=== PATIENT | male | born 1965 | race Hispanic/Latino ===

== ENCOUNTER 2018-06-12 09:13 | Day surgery (SDC) | payer OTHER, SELFPAY ==
[2018-06-12 09:41] VITALS: BP 119/79; PULSE 65; RESP 16; TEMP 36.3; O2SAT 95; BMI 29.2
--- NOTE | 2018-06-12 10:34 | PM.HP.1 ---
History of Present Illness Date Patient Seen: 06/12/18 Time Patient Seen: 10:34 Chief complaint: [id number] SCREENING COLONOSCOPY W/POSS BX Narrative: Colorectal cancer screening Patient History Family & Social History Social History: household members spouse Meds Home Medications Medication Instructions Recorded Confirmed Type No Known Home Medications 06/12/18 06/12/18 History Allergies Allergy/AdvReac Type Severity Reaction Status Date / Time No Known Drug Allergies Allergy Verified 06/12/18 09:47 Exam Vital Signs (past 8 hours): - 06/12/18 09:41 Temperature 97.4 F L Pulse Rate 65 Respiratory Rate 16 Blood Pressure 119/79 Pulse Oximetry 95 Oxygen Delivery Method Room Air Narrative Exam Narrative: Oropharynx free of lesions Chest clear to auscultation and percussion Cardiac exam reveals no S3 or murmur. Assessment & Plan Plan: Assessment/Plan Narrative: Screening colonoscopy for colorectal cancer screening. First colonoscopy. Risks, benefits, alternatives have been explained.
--- NOTE | 2018-06-12 10:35 | PM.OP.ENDO ---
Operative Date/Time/Diagnoses Date of procedure: 06/12/18 Time of procedure: 10:35 Pre-op diagnosis: See indications and findings Post-op diagnosis: same Procedure & Clinicians Study performed: Colonoscopy Same procedure as scheduled: Yes Indications: Screening Surgeon: Javid Cronin Procedure Notes Procedure in detail: After informed consent was obtained the patient was placed in the left lateral decubitus position. The video colonoscope was introduced the rectum and slowly advanced to the cecum. On slow withdrawal mucosa was carefully examined. The scope was removed. The patient tolerated procedure well. Preparation was good. Blood loss none Complications none Sedation Total sedation time
[2018-06-12] MEDS: MIDAZOLAM 5 MG/5 ML VIAL IV (10:49)
[2018-06-12] MEDS: fentaNYL 250 MCG/5 ML INJ IV (10:49)
--- NOTE | 2018-06-12 10:51 | PM.OP.ENDO ---
Operative Date/Time/Diagnoses Date of procedure: 06/12/18 Time of procedure: 10:52 Pre-op diagnosis: See indication and findings Post-op diagnosis: same Procedure & Clinicians Study performed: Colonoscopy Same procedure as scheduled: Yes Indications: Screening Surgeon: Javid Cronin Procedure Notes Procedure in detail: After informed consent was obtained the patient was placed in left lateral decubitus position. The video colonoscope was introduced the rectum slowly advanced cecum. On slow withdrawal mucosa was carefully examined. The scope was removed. The patient tolerated procedure well. Preparation was good. Blood loss none Complications none Sedation Total sedation time 15 min Versed 5 mg fentanyl 100 mcg IV titration Findings 1. Normal colonoscopy to cecum Patient will need follow-up colonoscopy in 10 years.
[2018-06-12 10:55] VITALS: BP 126/82; PULSE 72; RESP 13; TEMP 36.1; O2SAT 94
[2018-06-12 11:00] VITALS: BP 121/76; PULSE 72; RESP 13; TEMP 36.1; O2SAT 94
--- NOTE | 2018-06-12 11:00 | SUR.PHASEI ---
see i & o for iv intake- not documented in MAR for previos phase of care
[2018-06-12 11:05] VITALS: BP 125/80; PULSE 76; RESP 20; TEMP 36.1; O2SAT 92
[2018-06-12 11:09] VITALS: BP 117/75; PULSE 74; RESP 16; TEMP 36.1; O2SAT 94
[2018-06-12 11:40] VITALS: BP 116/79; PULSE 62; RESP 16; TEMP 36.5; O2SAT 99
--- NOTE | 2018-06-12 12:07 | SUR.PHASEII ---
700 ml IV infused, unable to chart on [facility] since IVF were not originally charted.
== END 2018-06-12 11:45 | disposition home or self-care (01) ==
PROVIDERS: Visit Provider Internal Medicine Gastroenterology
PROC: 0DJD8ZZ Inspection of Lower Intestinal Tract, Via Natural or Artificial Opening Endoscopic (ICD-10-PCS; CPT 45378; principal; 2018-06-12 10:00)
DX: Z12.11 Encounter for screening for malignant neoplasm of colon (principal)
CPT/HCPCS: 45378; J2250; J3010